=== PATIENT | female | born 1990 | race Two or more races ===

== ENCOUNTER 2022-01-05 01:14 | Outpatient (CLI) | payer OTHER ==
[2022-01-05] MEDS ORDERED: PRENATAL TABLE1 EAC3 PO (01:22)
[2022-01-05] MEDS ORDERED: VAZALORE81 MG PO (01:22)
== END 2022-01-05 09:03 | disposition home or self-care (01) ==
LOC: OBS/DEL 01:14
PROVIDERS: ATTEND Obstetrics & Gynecology
DX: O26.893 Other specified pregnancy related conditions, third trimester (principal); Z3A.34 34 weeks gestation of pregnancy